=== PATIENT | female | born 1935 | race African-American/Black ===

== ENCOUNTER 2018-05-18 15:42 | Inpatient (IN) ==
[2018-05-18 16:33] LABS: Basophils # 0.1 10*3/uL (0.0-0.2); Basophils % 0.5 % (0.0-0.8); Eosinophils # 0.1 10*3/uL (0.0-0.87); Eosinophils % 1.4 % (0.00-10.9); Hematocrit 44.3 VOL% (35.7-47.0); Hemoglobin 14.1 GM/DL (12.0-16.0); Immature Granulocytes % 0.3 %; Immature Granulocytes Absolute 0.03 #; Lymphocytes # 1.6 10*3/uL (1.4-4.0); Lymphocytes % 16.7 % (21.3-54.2); Mean Corpuscular HGB Conc 31.8 GM/DL (32-36); Mean Corpuscular Hemoglobin 29 PG (27-34); Mean Corpuscular Volume 91.7 FL (87-102); Mean Platelet Volume 11.1 FL (9.6-12.0); Monocytes # 0.9 10*3/uL (0.11-0.8); Monocytes % 8.9 % (1.7-12.7); Neutrophils # 6.9 10*3/uL (1.4-7.4); Neutrophils % 72.2 % (38.7-73.9); Platelet Count 239 T/CUMM (130-400); Red Blood Count 4.83 MC/CUMM (3.8-5.5); Red Cell Distribution Width 15.3 % (9.3-17.3); White Blood Count 9.5 T/CUMM (4-12)
[2018-05-18 16:49] LABS: Albumin 3.4 G/DL (3.4-5.0); Bilirubin,Total 0.6 MG/DL (0.2-1.0); Calcium 9.1 MG/DL (8.5-10.1); Osmolality,Calculated 303.9 MOS/KG (273-304); Potassium 3.3 MMOL/L (3.5-5.1); Total Protein 7.6 G/DL (6.4-8.3)
[2018-05-18 16:59] LABS: Apearance,Urine Slightly Hazy (Clear); Bacteria,Urine Many /HPF (Few); Blood, Urine Negative (Negative); Glucose,Urine (UA) Negative (Negative); Ketones,Urine 80 mg/dL (Negative); Mucus,Urine Occasional /LPF (Occasional); Nitrite,Urine Negative (Negative); Protein,Urine 30 MG/DL; RBC,Urine 1 /HPF (0-4); Squamous Epithelial Cell,Urine Occasional /HPF (0-10); Urine Specific Gravity 1.031 (1.001-1.035); WBC,Urine 5 /HPF (0-6)
[2018-05-18 17:00] LABS: Bilirubin,Urine Small mg/dL (Negative); Urine Color Yellow (Yellow)
[2018-05-18] MEDS ORDERED: SODIUM CHLORIDE 0.65% NASAL SPRAY 45 ML BOTTLE BOTH NARES PRN (19:11)
[2018-05-18] MEDS ORDERED: clonazePAM 0.5 MG TABLET PO PRN (19:11)
[2018-05-18] MEDS ORDERED: ACETAMINOPHEN 325 MG TABLET PO PRN (19:11)
[2018-05-18] MEDS ORDERED: DEXTROSE 5% NACL 0.45% 1,000 ML IV SCH (19:11)
[2018-05-18] MEDS ORDERED: ONDANSETRON 4 MG TABLET PO PRN (19:11)
[2018-05-18] MEDS ORDERED: DEXTROSE 50% 25 GM/50 ML VIAL IV PRN (19:11)
[2018-05-18] MEDS ORDERED: POTASSIUM CHLORIDE INJ 10 MEQ in DEXTROSE 5% NACL 0.22% 1,000 ML IV SCH (19:11)
[2018-05-18] MEDS ORDERED: BISACODYL 5 MG TABLET PO PRN (19:11)
[2018-05-18] MEDS ORDERED: GLUCAGON 1 MG VIAL IM PRN (19:11)
[2018-05-18] MEDS ORDERED: ACETAMINOPHEN 500 MG TABLET PO PRN (19:11)
[2018-05-18] MEDS ORDERED: POLYVINYL ALCOHOL 1.4% OPH SOLN 15 ML BOTTLE BOTH EYES PRN (19:11)
[2018-05-18] MEDS ORDERED: CETIRIZINE 10 MG TABLET PO PRN (19:11)
[2018-05-18] MEDS ORDERED: NUT TX GLUC INTOL LF SOY PO SCH (20:00)
[2018-05-18] MEDS ORDERED: FIBER PO SCH (20:00)
[2018-05-18] MEDS ORDERED: [UNRECOGNIZED DRUG - OTHER] PO SCH (20:00)
[2018-05-18 21:06] LABS: CKMB % 0.6 %; Troponin I 0.026 NG/ML (0.00-0.045)
[2018-05-18] MEDS ORDERED: DEXT 5% NACL 0.2% KCL 20 MEQ 20 MEQ/1,000 ML BAG IV SCH (22:00)
[2018-05-18] MEDS: INSULIN REGULAR 100 UNIT/ML SUBCUT SCH (23:27)
[2018-05-18] MEDS: MEGESTROL 400 MG/10 ML UDCUP PO SCH (23:28)
[2018-05-18] MEDS: OMEGA 3 ACID ETHYL ESTERS 1 GM CAPSULE PO SCH (23:28)
[2018-05-18] MEDS: ATORVASTATIN 20 MG TABLET PO SCH (23:28)
[2018-05-18] MEDS: ENTACAPONE 200 MG TABLET PO SCH (23:29)
[2018-05-18] MEDS: DONEPEZIL 10 MG TABLET PO SCH (23:29)
[2018-05-18] MEDS: risperiDONE 0.5 MG TABLET PO SCH (23:30)
[2018-05-18] MEDS: MIRTAZAPINE 15 MG TABLET PO SCH (23:30)
[2018-05-18] MEDS: PANTOPRAZOLE 40 MG TABLET PO SCH (23:30)
[2018-05-18] MEDS: rOPINIRole 1 MG TABLET PO SCH (23:30)
[2018-05-18] MEDS: CARBIDOPA/LEVODOPA 25-250 MG TABLET PO SCH (23:31)
[2018-05-19] MEDS: ENOXAPARIN 40 MG/0.4 ML SYRINGE SUBCUT SCH ×2 (00:12→21:59)
[2018-05-19] MEDS: POTASSIUM CHLORIDE RIDER 10 MEQ in PREMIX 1 EACH IV SCH ×2 (00:13→04:44)
[2018-05-19] MEDS: cefTRIAXone 1,000 MG in SYRINGE 1 EACH IV SCH ×2 (00:13→21:59)
[2018-05-19 06:12] LABS: Basophils % 0.4 % (0.0-0.8); Eosinophils # 0.2 10*3/uL (0.0-0.87); Eosinophils % 2.4 % (0.00-10.9); Hematocrit 41.4 VOL% (35.7-47.0); Hemoglobin 13.2 GM/DL (12.0-16.0); Immature Granulocytes % 0.4 %; Immature Granulocytes Absolute 0.04 #; Lymphocytes # 1.5 10*3/uL (1.4-4.0); Lymphocytes % 16.5 % (21.3-54.2); Mean Corpuscular HGB Conc 31.9 GM/DL (32-36); Mean Corpuscular Hemoglobin 29 PG (27-34); Mean Corpuscular Volume 91.6 FL (87-102); Mean Platelet Volume 10.7 FL (9.6-12.0); Monocytes # 0.9 10*3/uL (0.11-0.8); Monocytes % 10.1 % (1.7-12.7); Neutrophils # 6.3 10*3/uL (1.4-7.4); Neutrophils % 70.2 % (38.7-73.9); Platelet Count 218 T/CUMM (130-400); Red Blood Count 4.52 MC/CUMM (3.8-5.5); Red Cell Distribution Width 15.5 % (9.3-17.3)
[2018-05-19 06:21] LABS: Albumin 3.1 G/DL (3.4-5.0); Bilirubin,Total 1.1 MG/DL (0.2-1.0); Calcium 8.9 MG/DL (8.5-10.1); Osmolality,Calculated 305.7 MOS/KG (273-304); Potassium 3.2 MMOL/L (3.5-5.1); Risk Ratio 4.85; Total Protein 6.9 G/DL (6.4-8.3)
[2018-05-19] MEDS ORDERED: PROTEIN HYDROLYS PO SCH (08:00)
[2018-05-19] MEDS ORDERED: AMINO ACIDS PO SCH (08:00)
[2018-05-19] MEDS: INSULIN REGULAR 100 UNIT/ML SUBCUT SCH ×4 (08:00→22:41)
[2018-05-19] MEDS ORDERED: [UNRECOGNIZED DRUG - OTHER] PO SCH (08:00)
[2018-05-19] MEDS ORDERED: SODIUM CHLORIDE IV SCH (09:00)
[2018-05-19] MEDS ORDERED: [UNRECOGNIZED DRUG - OTHER] PO SCH (09:00)
[2018-05-19] MEDS ORDERED: POTASSIUM CHLORIDE IV SCH (09:00)
[2018-05-19] MEDS ORDERED: [UNRECOGNIZED DRUG - OTHER] IV SCH (09:00)
[2018-05-19] MEDS: ENTACAPONE 200 MG TABLET PO SCH ×4 (10:05→21:57)
[2018-05-19] MEDS: LACTULOSE 20 GM/30 ML UDCUP PO SCH (10:05)
[2018-05-19] MEDS: OMEGA 3 ACID ETHYL ESTERS 1 GM CAPSULE PO SCH ×2 (10:06→21:58)
[2018-05-19] MEDS: MEGESTROL 400 MG/10 ML UDCUP PO SCH ×2 (10:06→21:58)
[2018-05-19] MEDS: POLYETHYLENE GLYCOL POWDER 17 GM PACK PO SCH (10:06)
[2018-05-19] MEDS: rOPINIRole 1 MG TABLET PO SCH ×3 (10:06→22:41)
[2018-05-19] MEDS: CARBIDOPA/LEVODOPA 25-250 MG TABLET PO SCH ×4 (10:07→21:59)
[2018-05-19] MEDS: POTASSIUM CHLORIDE INJ 30 MEQ in DEXTROSE 5% 1,000 ML IV SCH (13:30)
[2018-05-19 18:46] LABS: Calcium 8.4 MG/DL (8.5-10.1); Osmolality,Calculated 300.1 MOS/KG (273-304); Potassium 3.1 MMOL/L (3.5-5.1)
[2018-05-19] MEDS: DONEPEZIL 10 MG TABLET PO SCH (21:54)
[2018-05-19] MEDS: MIRTAZAPINE 15 MG TABLET PO SCH (21:58)
[2018-05-19] MEDS: PANTOPRAZOLE 40 MG TABLET PO SCH (21:58)
[2018-05-19] MEDS: ATORVASTATIN 20 MG TABLET PO SCH (21:58)
[2018-05-19] MEDS: risperiDONE 0.5 MG TABLET PO SCH (21:59)
[2018-05-20] MEDS: POTASSIUM CHLORIDE INJ 30 MEQ in DEXTROSE 5% 1,000 ML IV SCH (03:15)
[2018-05-20] MEDS: INSULIN REGULAR 100 UNIT/ML SUBCUT SCH ×4 (07:30→21:11)
[2018-05-20] MEDS: MEGESTROL 400 MG/10 ML UDCUP PO SCH ×2 (09:00→21:13)
[2018-05-20] MEDS: OMEGA 3 ACID ETHYL ESTERS 1 GM CAPSULE PO SCH ×2 (09:00→21:13)
[2018-05-20] MEDS: rOPINIRole 1 MG TABLET PO SCH ×3 (09:00→21:15)
[2018-05-20] MEDS: POLYETHYLENE GLYCOL POWDER 17 GM PACK PO SCH (09:00)
[2018-05-20] MEDS: CARBIDOPA/LEVODOPA 25-250 MG TABLET PO SCH ×4 (09:00→21:15)
[2018-05-20] MEDS: LACTULOSE 20 GM/30 ML UDCUP PO SCH (09:00)
[2018-05-20] MEDS: ENTACAPONE 200 MG TABLET PO SCH ×4 (10:00→21:11)
[2018-05-20] MEDS: POTASSIUM CHLORIDE INJ 40 MEQ in DEXTROSE 5% 1,000 ML IV SCH (18:25)
[2018-05-20] MEDS: DONEPEZIL 10 MG TABLET PO SCH (21:11)
[2018-05-20] MEDS: ATORVASTATIN 20 MG TABLET PO SCH (21:12)
[2018-05-20] MEDS: PANTOPRAZOLE 40 MG TABLET PO SCH (21:13)
[2018-05-20] MEDS: ENOXAPARIN 40 MG/0.4 ML SYRINGE SUBCUT SCH (21:13)
[2018-05-20] MEDS: MIRTAZAPINE 15 MG TABLET PO SCH (21:14)
[2018-05-20] MEDS: risperiDONE 0.5 MG TABLET PO SCH (21:15)
[2018-05-20] MEDS: cefTRIAXone 1,000 MG in SYRINGE 1 EACH IV SCH (21:20)
[2018-05-21] MEDS ORDERED: MORPHINE 4 MG/1 ML VIAL IV PRN (00:45)
[2018-05-21] MEDS: ONDANSETRON 4 MG/2 ML VIAL IV PRN ×2 (01:09→23:43)
[2018-05-21 05:50] LABS: Basophils % 0.5 % (0.0-0.8); Eosinophils # 0.3 10*3/uL (0.0-0.87); Eosinophils % 4.3 % (0.00-10.9); Immature Granulocytes % 0.5 %; Immature Granulocytes Absolute 0.03 #; Lymphocytes # 1.4 10*3/uL (1.4-4.0); Lymphocytes % 24.3 % (21.3-54.2); Mean Corpuscular HGB Conc 32.4 GM/DL (32-36); Mean Corpuscular Hemoglobin 29 PG (27-34); Mean Corpuscular Volume 89.5 FL (87-102); Mean Platelet Volume 11.2 FL (9.6-12.0); Monocytes # 0.7 10*3/uL (0.11-0.8); Monocytes % 12.7 % (1.7-12.7); Neutrophils # 3.3 10*3/uL (1.4-7.4); Neutrophils % 57.7 % (38.7-73.9); Platelet Count 185 T/CUMM (130-400); Red Cell Distribution Width 15.1 % (9.3-17.3)
[2018-05-21 06:00] LABS: White Blood Count 5.8 T/CUMM (4-12)
[2018-05-21 06:06] LABS: Calcium 8.3 MG/DL (8.5-10.1); Osmolality,Calculated 283.1 MOS/KG (273-304); Potassium 3.5 MMOL/L (3.5-5.1)
[2018-05-21] MEDS: INSULIN REGULAR 100 UNIT/ML SUBCUT SCH ×4 (07:30→21:55)
[2018-05-21] MEDS: POTASSIUM CHLORIDE INJ 40 MEQ in DEXTROSE 5% 1,000 ML IV SCH (07:56)
[2018-05-21] MEDS: MEGESTROL 400 MG/10 ML UDCUP PO SCH ×2 (09:00→20:52)
[2018-05-21] MEDS: OMEGA 3 ACID ETHYL ESTERS 1 GM CAPSULE PO SCH ×2 (09:00→20:51)
[2018-05-21] MEDS: ENTACAPONE 200 MG TABLET PO SCH ×4 (09:00→20:50)
[2018-05-21] MEDS: POLYETHYLENE GLYCOL POWDER 17 GM PACK PO SCH (09:00)
[2018-05-21] MEDS: CARBIDOPA/LEVODOPA 25-250 MG TABLET PO SCH ×4 (09:00→20:52)
[2018-05-21] MEDS: rOPINIRole 1 MG TABLET PO SCH ×3 (09:00→20:52)
[2018-05-21] MEDS: LACTULOSE 20 GM/30 ML UDCUP PO SCH (09:00)
[2018-05-21] MEDS ORDERED: MAGNESIUM SULF RIDER 4 GM in PREMIX 1 EACH IV PRN (13:56)
[2018-05-21] MEDS: MAGNESIUM SULF RIDER 2 GM in PREMIX 1 EACH IV PRN (19:58)
[2018-05-21] MEDS: cefTRIAXone 1,000 MG in SYRINGE 1 EACH IV SCH (20:49)
[2018-05-21] MEDS: DONEPEZIL 10 MG TABLET PO SCH (20:50)
[2018-05-21] MEDS: ATORVASTATIN 20 MG TABLET PO SCH (20:51)
[2018-05-21] MEDS: MIRTAZAPINE 15 MG TABLET PO SCH (20:52)
[2018-05-21] MEDS: risperiDONE 0.5 MG TABLET PO SCH (20:52)
[2018-05-22] MEDS: POTASSIUM CHLORIDE INJ 40 MEQ in DEXTROSE 5% 1,000 ML IV SCH ×3 (00:57→17:24)
[2018-05-22 05:26] LABS: Basophils % 0.6 % (0.0-0.8); Eosinophils # 0.2 10*3/uL (0.0-0.87); Eosinophils % 3.6 % (0.00-10.9); Hematocrit 35.8 VOL% (35.7-47.0); Hemoglobin 11.6 GM/DL (12.0-16.0); Immature Granulocytes % 0.6 %; Immature Granulocytes Absolute 0.04 #; Lymphocytes # 1.6 10*3/uL (1.4-4.0); Lymphocytes % 24.4 % (21.3-54.2); Mean Corpuscular HGB Conc 32.4 GM/DL (32-36); Mean Corpuscular Hemoglobin 29 PG (27-34); Mean Corpuscular Volume 89.1 FL (87-102); Mean Platelet Volume 11.5 FL (9.6-12.0); Monocytes # 0.8 10*3/uL (0.11-0.8); Monocytes % 12.7 % (1.7-12.7); Neutrophils # 3.7 10*3/uL (1.4-7.4); Neutrophils % 58.1 % (38.7-73.9); Platelet Count 183 T/CUMM (130-400); Red Blood Count 4.02 MC/CUMM (3.8-5.5); Red Cell Distribution Width 14.7 % (9.3-17.3); White Blood Count 6.4 T/CUMM (4-12)
[2018-05-22 05:45] LABS: Calcium 8.4 MG/DL (8.5-10.1); Osmolality,Calculated 271.8 MOS/KG (273-304)
[2018-05-22] MEDS ORDERED: FAMOTIDINE 20 MG/2 ML VIAL IV ONE (07:09)
[2018-05-22] MEDS: INSULIN REGULAR 100 UNIT/ML SUBCUT SCH ×4 (08:30→21:41)
[2018-05-22] MEDS ORDERED: PANTOPRAZOLE 40 MG VIAL IV SCH (09:00)
[2018-05-22] MEDS: OMEGA 3 ACID ETHYL ESTERS 1 GM CAPSULE PO SCH ×3 (10:04→21:42)
[2018-05-22] MEDS: MEGESTROL 400 MG/10 ML UDCUP PO SCH ×2 (10:04→21:42)
[2018-05-22] MEDS: LACTULOSE 20 GM/30 ML UDCUP PO SCH (10:04)
[2018-05-22] MEDS: ENTACAPONE 200 MG TABLET PO SCH ×4 (10:04→21:41)
[2018-05-22] MEDS: POLYETHYLENE GLYCOL POWDER 17 GM PACK PO SCH (10:04)
[2018-05-22] MEDS: CARBIDOPA/LEVODOPA 25-250 MG TABLET PO SCH ×4 (10:04→21:43)
[2018-05-22] MEDS: rOPINIRole 1 MG TABLET PO SCH ×3 (10:05→21:42)
[2018-05-22] MEDS ORDERED: MINERAL OIL ENEMA 133 ML BOTTLE RECTAL ONE (15:59)
[2018-05-22] MEDS ORDERED: LIDOCAINE 100 MG/5 ML SYRINGE ONE (18:48)
[2018-05-22] MEDS ORDERED: PROPOFOL 200 MG/20 ML VIAL IV ONE (18:48)
[2018-05-22] MEDS: DONEPEZIL 10 MG TABLET PO SCH (21:41)
[2018-05-22] MEDS: ATORVASTATIN 20 MG TABLET PO SCH (21:41)
[2018-05-22] MEDS: DOCUSATE SODIUM 100 MG/10 ML UDCUP PO SCH (21:41)
[2018-05-22] MEDS: MIRTAZAPINE 15 MG TABLET PO SCH (21:42)
[2018-05-22] MEDS: risperiDONE 0.5 MG TABLET PO SCH (21:43)
[2018-05-22] MEDS: PANTOPRAZOLE 40 MG VIAL IV SCH (22:38)
[2018-05-23] MEDS: POTASSIUM CHLORIDE INJ 40 MEQ in DEXTROSE 5% 1,000 ML IV SCH ×3 (05:09→23:13)
[2018-05-23 06:25] LABS: Osmolality,Calculated 270.8 MOS/KG (273-304); Potassium 3.9 MMOL/L (3.5-5.1)
[2018-05-23] MEDS ORDERED: PROMETHAZINE INJ 25 MG in SODIUM CHLORIDE 0.9% 50 ML IV PRN (09:01)
[2018-05-23] MEDS: INSULIN REGULAR 100 UNIT/ML SUBCUT SCH ×4 (10:53→23:07)
[2018-05-23] MEDS: OMEGA 3 ACID ETHYL ESTERS 1 GM CAPSULE PO SCH ×2 (10:55→23:07)
[2018-05-23] MEDS: ENTACAPONE 200 MG TABLET PO SCH ×4 (10:55→23:07)
[2018-05-23] MEDS: DOCUSATE SODIUM 100 MG/10 ML UDCUP PO SCH ×2 (10:55→23:06)
[2018-05-23] MEDS: POLYETHYLENE GLYCOL POWDER 17 GM PACK PO SCH (10:56)
[2018-05-23] MEDS: rOPINIRole 1 MG TABLET PO SCH ×3 (10:56→23:08)
[2018-05-23] MEDS: CARBIDOPA/LEVODOPA 25-250 MG TABLET PO SCH ×4 (10:56→23:08)
[2018-05-23] MEDS: MEGESTROL 400 MG/10 ML UDCUP PO SCH ×2 (10:56→23:07)
[2018-05-23] MEDS: PANTOPRAZOLE 40 MG VIAL IV SCH ×2 (14:55→23:20)
[2018-05-23] MEDS: LACTULOSE 20 GM/30 ML UDCUP PO SCH (15:04)
[2018-05-23] MEDS ORDERED: BISACODYL 10 MG SUPP RECTAL ONE (15:56)
[2018-05-23] MEDS: DONEPEZIL 10 MG TABLET PO SCH (23:06)
[2018-05-23] MEDS: ATORVASTATIN 20 MG TABLET PO SCH (23:07)
[2018-05-23] MEDS: MIRTAZAPINE 15 MG TABLET PO SCH (23:08)
[2018-05-23] MEDS: risperiDONE 0.5 MG TABLET PO SCH (23:08)
[2018-05-24 07:00] LABS: Basophils % 0.4 % (0.0-0.8); Eosinophils # 0.2 10*3/uL (0.0-0.87); Eosinophils % 2.9 % (0.00-10.9); Hematocrit 35.1 VOL% (35.7-47.0); Hemoglobin 11.6 GM/DL (12.0-16.0); Immature Granulocytes % 0.4 %; Immature Granulocytes Absolute 0.03 #; Lymphocytes # 1.7 10*3/uL (1.4-4.0); Lymphocytes % 21.7 % (21.3-54.2); Mean Corpuscular Hemoglobin 29 PG (27-34); Mean Platelet Volume 11.1 FL (9.6-12.0); Monocytes % 11.9 % (1.7-12.7); Neutrophils % 62.7 % (38.7-73.9); Platelet Count 213 T/CUMM (130-400); Red Blood Count 3.99 MC/CUMM (3.8-5.5); Red Cell Distribution Width 14.9 % (9.3-17.3)
[2018-05-24 07:51] LABS: Calcium 7.9 MG/DL (8.5-10.1); Osmolality,Calculated 267.1 MOS/KG (273-304); Potassium 4.1 MMOL/L (3.5-5.1)
[2018-05-24] MEDS: INSULIN REGULAR 100 UNIT/ML SUBCUT SCH ×4 (09:42→21:33)
[2018-05-24] MEDS: POTASSIUM CHLORIDE INJ 40 MEQ in DEXTROSE 5% 1,000 ML IV SCH (10:22)
[2018-05-24] MEDS: PANTOPRAZOLE 40 MG VIAL IV SCH ×2 (11:00→20:41)
[2018-05-24] MEDS: CARBIDOPA/LEVODOPA 25-250 MG TABLET PO SCH ×4 (11:01→20:40)
[2018-05-24] MEDS: POLYETHYLENE GLYCOL POWDER 17 GM PACK PEG SCH ×2 (11:01→21:33)
[2018-05-24] MEDS: POLYETHYLENE GLYCOL POWDER 17 GM PACK PO SCH (11:02)
[2018-05-24] MEDS: rOPINIRole 1 MG TABLET PO SCH ×3 (11:02→20:40)
[2018-05-24] MEDS: OMEGA 3 ACID ETHYL ESTERS 1 GM CAPSULE PO SCH ×2 (11:02→20:40)
[2018-05-24] MEDS: ENTACAPONE 200 MG TABLET PO SCH ×4 (11:02→20:40)
[2018-05-24] MEDS: METOCLOPRAMIDE 10 MG/10 ML UDCUP PEG SCH ×3 (13:01→20:40)
[2018-05-24] MEDS: DONEPEZIL 10 MG TABLET PO SCH (20:40)
[2018-05-24] MEDS: ATORVASTATIN 20 MG TABLET PO SCH (20:40)
[2018-05-24] MEDS: risperiDONE 0.5 MG TABLET PO SCH (20:40)
[2018-05-25] MEDS: ONDANSETRON 4 MG/2 ML VIAL IV PRN ×3 (01:30→21:26)
[2018-05-25] MEDS: POTASSIUM CHLORIDE INJ 40 MEQ in DEXTROSE 5% 1,000 ML IV SCH ×2 (01:40→15:50)
[2018-05-25] MEDS: INSULIN REGULAR 100 UNIT/ML SUBCUT SCH ×4 (08:23→21:28)
[2018-05-25] MEDS: AZITHROMYCIN INJ 250 MG in SODIUM CHLORIDE 0.9% 250 ML IV SCH (09:49)
[2018-05-25] MEDS: PANTOPRAZOLE 40 MG VIAL IV SCH ×2 (09:50→21:27)
[2018-05-25] MEDS: CARBIDOPA/LEVODOPA 25-250 MG TABLET PO SCH ×4 (09:53→21:27)
[2018-05-25] MEDS: ENTACAPONE 200 MG TABLET PO SCH ×4 (09:53→21:26)
[2018-05-25] MEDS: POLYETHYLENE GLYCOL POWDER 17 GM PACK PEG SCH ×2 (09:53→21:27)
[2018-05-25] MEDS: OMEGA 3 ACID ETHYL ESTERS 1 GM CAPSULE PO SCH ×2 (09:53→21:27)
[2018-05-25] MEDS: rOPINIRole 1 MG TABLET PO SCH ×3 (09:58→21:26)
[2018-05-25] MEDS: METOCLOPRAMIDE 10 MG/10 ML UDCUP PEG SCH (09:58)
[2018-05-25] MEDS: METOCLOPRAMIDE 10 MG/2 ML VIAL IV SCH ×2 (15:51→17:17)
[2018-05-25] MEDS: risperiDONE 0.5 MG TABLET PO SCH (21:26)
[2018-05-25] MEDS: DONEPEZIL 10 MG TABLET PO SCH (21:27)
[2018-05-25] MEDS: ATORVASTATIN 20 MG TABLET PO SCH (21:27)
[2018-05-26] MEDS: METOCLOPRAMIDE 10 MG/2 ML VIAL IV SCH ×4 (00:50→17:14)
[2018-05-26 06:09] LABS: Basophils # 0.1 10*3/uL (0.0-0.2); Basophils % 0.4 % (0.0-0.8); Eosinophils # 0.2 10*3/uL (0.0-0.87); Eosinophils % 1.3 % (0.00-10.9); Hematocrit 36.2 VOL% (35.7-47.0); Immature Granulocytes % 0.5 %; Immature Granulocytes Absolute 0.07 #; Lymphocytes # 1.7 10*3/uL (1.4-4.0); Lymphocytes % 12.4 % (21.3-54.2); Mean Corpuscular HGB Conc 33.1 GM/DL (32-36); Mean Corpuscular Hemoglobin 29 PG (27-34); Monocytes # 1.6 10*3/uL (0.11-0.8); Monocytes % 11.5 % (1.7-12.7); NRBC # 0.03 10*3/uL; Neutrophils # 9.9 10*3/uL (1.4-7.4); Neutrophils % 73.9 % (38.7-73.9); Platelet Count 264 T/CUMM (130-400); Red Blood Count 4.16 MC/CUMM (3.8-5.5); Red Cell Distribution Width 14.9 % (9.3-17.3); White Blood Count 13.4 T/CUMM (4-12)
[2018-05-26 06:29] LABS: Calcium 8.6 MG/DL (8.5-10.1); Osmolality,Calculated 264.4 MOS/KG (273-304); Potassium 3.9 MMOL/L (3.5-5.1)
[2018-05-26 06:34] LABS: Prealbumin 8.9 MG/DL (20-40)
[2018-05-26] MEDS: INSULIN REGULAR 100 UNIT/ML SUBCUT SCH ×4 (07:30→21:57)
[2018-05-26] MEDS ORDERED: MAGNESIUM HYDROXIDE SUSP 30 ML UDCUP PO ONE (09:40)
[2018-05-26] MEDS: rOPINIRole 1 MG TABLET PO SCH ×3 (09:49→21:56)
[2018-05-26] MEDS: ENTACAPONE 200 MG TABLET PO SCH ×4 (09:49→21:56)
[2018-05-26] MEDS: OMEGA 3 ACID ETHYL ESTERS 1 GM CAPSULE PO SCH ×2 (09:49→21:56)
[2018-05-26] MEDS: PANTOPRAZOLE 40 MG VIAL IV SCH ×2 (09:49→21:56)
[2018-05-26] MEDS: POLYETHYLENE GLYCOL POWDER 17 GM PACK PEG SCH ×2 (09:49→21:56)
[2018-05-26] MEDS: CARBIDOPA/LEVODOPA 25-250 MG TABLET PO SCH ×4 (09:49→21:56)
[2018-05-26] MEDS: ONDANSETRON 4 MG/2 ML VIAL IV PRN ×2 (09:51→13:46)
[2018-05-26] MEDS: AZITHROMYCIN INJ 250 MG in SODIUM CHLORIDE 0.9% 250 ML IV SCH (09:55)
[2018-05-26] MEDS: POTASSIUM CHLORIDE INJ 40 MEQ in DEXTROSE 5% 1,000 ML IV SCH (16:52)
[2018-05-26] MEDS: DONEPEZIL 10 MG TABLET PO SCH (21:56)
[2018-05-26] MEDS: ATORVASTATIN 20 MG TABLET PO SCH (21:56)
[2018-05-26] MEDS: risperiDONE 0.5 MG TABLET PO SCH (21:56)
[2018-05-26] MEDS: MAGNESIUM SULF RIDER 2 GM in PREMIX 1 EACH IV PRN (21:57)
[2018-05-27] MEDS: METOCLOPRAMIDE 10 MG/2 ML VIAL IV SCH ×4 (00:30→18:48)
[2018-05-27] MEDS: ONDANSETRON 4 MG/2 ML VIAL IV PRN (00:34)
[2018-05-27] MEDS: POTASSIUM CHLORIDE INJ 40 MEQ in DEXTROSE 5% 1,000 ML IV SCH ×2 (04:17→18:39)
[2018-05-27] MEDS ORDERED: MAGNESIUM HYDROXIDE SUSP 30 ML UDCUP PO ONE (07:21)
[2018-05-27 08:40] LABS: Basophils % 0.3 % (0.0-0.8); Eosinophils # 0.2 10*3/uL (0.0-0.87); Eosinophils % 1.4 % (0.00-10.9); Hematocrit 35.8 VOL% (35.7-47.0); Hemoglobin 11.6 GM/DL (12.0-16.0); Immature Granulocytes % 0.7 %; Lymphocytes % 13.6 % (21.3-54.2); Mean Corpuscular HGB Conc 32.4 GM/DL (32-36); Mean Corpuscular Hemoglobin 29 PG (27-34); Mean Platelet Volume 9.7 FL (9.6-12.0); Monocytes # 1.3 10*3/uL (0.11-0.8); Monocytes % 8.7 % (1.7-12.7); Neutrophils % 75.3 % (38.7-73.9); Platelet Count 231 T/CUMM (130-400); Red Blood Count 4.07 MC/CUMM (3.8-5.5); White Blood Count 14.7 T/CUMM (4-12)
[2018-05-27 09:08] LABS: Albumin 2.3 G/DL (3.4-5.0); Bilirubin,Total 0.6 MG/DL (0.2-1.0); Calcium 8.4 MG/DL (8.5-10.1); Osmolality,Calculated 263.5 MOS/KG (273-304); Potassium 4.4 MMOL/L (3.5-5.1)
[2018-05-27] MEDS: ENTACAPONE 200 MG TABLET PO SCH ×4 (09:27→22:54)
[2018-05-27] MEDS: OMEGA 3 ACID ETHYL ESTERS 1 GM CAPSULE PO SCH ×2 (09:27→22:54)
[2018-05-27] MEDS: POLYETHYLENE GLYCOL POWDER 17 GM PACK PEG SCH ×2 (09:27→22:54)
[2018-05-27] MEDS: PANTOPRAZOLE 40 MG VIAL IV SCH ×2 (09:28→22:54)
[2018-05-27] MEDS: INSULIN REGULAR 100 UNIT/ML SUBCUT SCH ×4 (09:28→23:54)
[2018-05-27] MEDS: CARBIDOPA/LEVODOPA 25-250 MG TABLET PO SCH ×4 (09:28→22:53)
[2018-05-27] MEDS: AZITHROMYCIN INJ 250 MG in SODIUM CHLORIDE 0.9% 250 ML IV SCH (09:28)
[2018-05-27] MEDS: rOPINIRole 1 MG TABLET PO SCH ×3 (09:28→22:53)
[2018-05-27] MEDS ORDERED: SODIUM CHLORIDE 0.9% 500 ML IV ONE (19:42)
[2018-05-27] MEDS: DONEPEZIL 10 MG TABLET PO SCH (22:53)
[2018-05-27] MEDS: risperiDONE 0.5 MG TABLET PO SCH (22:54)
[2018-05-27] MEDS: ATORVASTATIN 20 MG TABLET PO SCH (22:54)
[2018-05-28] MEDS: METOCLOPRAMIDE 10 MG/2 ML VIAL IV SCH ×5 (01:51→23:01)
[2018-05-28] MEDS ORDERED: SODIUM CHLORIDE 0.9% 500 ML IV ONE (02:22)
[2018-05-28 05:40] LABS: Basophils % 0.1 % (0.0-0.8); Eosinophils # 0.2 10*3/uL (0.0-0.87); Eosinophils % 2.6 % (0.00-10.9); Hematocrit 35.1 VOL% (35.7-47.0); Hemoglobin 11.1 GM/DL (12.0-16.0); Immature Granulocytes % 0.6 %; Immature Granulocytes Absolute 0.05 #; Lymphocytes % 12.1 % (21.3-54.2); Mean Corpuscular HGB Conc 31.6 GM/DL (32-36); Mean Corpuscular Hemoglobin 28 PG (27-34); Mean Corpuscular Volume 89.8 FL (87-102); Mean Platelet Volume 9.8 FL (9.6-12.0); Monocytes # 0.8 10*3/uL (0.11-0.8); Monocytes % 9.7 % (1.7-12.7); Neutrophils # 5.9 10*3/uL (1.4-7.4); Neutrophils % 74.9 % (38.7-73.9); Platelet Count 215 T/CUMM (130-400); Red Blood Count 3.91 MC/CUMM (3.8-5.5); White Blood Count 7.9 T/CUMM (4-12)
[2018-05-28 06:24] LABS: Albumin 2.2 G/DL (3.4-5.0); Bilirubin,Total 0.8 MG/DL (0.2-1.0); Calcium 7.9 MG/DL (8.5-10.1); Osmolality,Calculated 261.7 MOS/KG (273-304); Potassium 4.2 MMOL/L (3.5-5.1); Total Protein 5.7 G/DL (6.4-8.3)
[2018-05-28] MEDS: INSULIN REGULAR 100 UNIT/ML SUBCUT SCH ×4 (07:36→22:55)
[2018-05-28] MEDS: SODIUM CHLORIDE 0.9% 1,000 ML IV SCH ×2 (08:14→21:30)
[2018-05-28] MEDS: OMEGA 3 ACID ETHYL ESTERS 1 GM CAPSULE PO SCH ×2 (08:15→22:54)
[2018-05-28] MEDS: rOPINIRole 1 MG TABLET PO SCH ×3 (08:15→22:54)
[2018-05-28] MEDS: ENTACAPONE 200 MG TABLET PO SCH ×4 (08:15→22:54)
[2018-05-28] MEDS: PANTOPRAZOLE 40 MG VIAL IV SCH ×2 (08:15→22:52)
[2018-05-28] MEDS: CARBIDOPA/LEVODOPA 25-250 MG TABLET PO SCH ×4 (08:15→22:52)
[2018-05-28] MEDS: POLYETHYLENE GLYCOL POWDER 17 GM PACK PEG SCH ×2 (08:15→22:52)
[2018-05-28] MEDS: AZITHROMYCIN INJ 250 MG in SODIUM CHLORIDE 0.9% 250 ML IV SCH (09:48)
[2018-05-28] MEDS: DONEPEZIL 10 MG TABLET PO SCH (22:52)
[2018-05-28] MEDS: ATORVASTATIN 20 MG TABLET PO SCH (22:54)
[2018-05-28] MEDS: risperiDONE 0.5 MG TABLET PO SCH (22:54)
[2018-05-29] MEDS ORDERED: SODIUM CHLORIDE 0.9% 500 ML IV ONE ×2 (00:51→12:24)
[2018-05-29 05:56] LABS: Basophils % 0.5 % (0.0-0.8); Eosinophils # 0.2 10*3/uL (0.0-0.87); Eosinophils % 4.1 % (0.00-10.9); Hematocrit 32.9 VOL% (35.7-47.0); Hemoglobin 10.4 GM/DL (12.0-16.0); Immature Granulocytes % 0.7 %; Immature Granulocytes Absolute 0.04 #; Lymphocytes # 1.8 10*3/uL (1.4-4.0); Lymphocytes % 30.1 % (21.3-54.2); Mean Corpuscular HGB Conc 31.6 GM/DL (32-36); Mean Corpuscular Hemoglobin 29 PG (27-34); Mean Corpuscular Volume 90.4 FL (87-102); Mean Platelet Volume 9.4 FL (9.6-12.0); Monocytes # 0.7 10*3/uL (0.11-0.8); Monocytes % 12.4 % (1.7-12.7); Neutrophils % 52.2 % (38.7-73.9); Platelet Count 235 T/CUMM (130-400); Red Blood Count 3.64 MC/CUMM (3.8-5.5); Red Cell Distribution Width 15.3 % (9.3-17.3); White Blood Count 5.8 T/CUMM (4-12)
[2018-05-29 06:17] LABS: Bilirubin,Total 0.7 MG/DL (0.2-1.0); Calcium 7.8 MG/DL (8.5-10.1); Osmolality,Calculated 272.7 MOS/KG (273-304); Potassium 4.6 MMOL/L (3.5-5.1); Total Protein 5.2 G/DL (6.4-8.3)
[2018-05-29] MEDS: METOCLOPRAMIDE 10 MG/2 ML VIAL IV SCH ×3 (07:16→17:20)
[2018-05-29] MEDS: INSULIN REGULAR 100 UNIT/ML SUBCUT SCH ×4 (09:34→22:46)
[2018-05-29] MEDS: AZITHROMYCIN INJ 250 MG in SODIUM CHLORIDE 0.9% 250 ML IV SCH (10:13)
[2018-05-29] MEDS: rOPINIRole 1 MG TABLET PO SCH ×4 (10:14→20:44)
[2018-05-29] MEDS: OMEGA 3 ACID ETHYL ESTERS 1 GM CAPSULE PO SCH ×2 (10:14→20:44)
[2018-05-29] MEDS: CARBIDOPA/LEVODOPA 25-250 MG TABLET PO SCH ×4 (10:14→20:44)
[2018-05-29] MEDS: ENTACAPONE 200 MG TABLET PO SCH ×4 (10:14→20:44)
[2018-05-29] MEDS: POLYETHYLENE GLYCOL POWDER 17 GM PACK PEG SCH ×2 (10:14→20:44)
[2018-05-29] MEDS: SODIUM CHLORIDE 0.9% 1,000 ML IV SCH (11:16)
[2018-05-29] MEDS: PANTOPRAZOLE 40 MG VIAL IV SCH (13:56)
[2018-05-29] MEDS: DONEPEZIL 10 MG TABLET PO SCH (20:44)
[2018-05-29] MEDS: risperiDONE 0.5 MG TABLET PO SCH (20:44)
[2018-05-29] MEDS: ATORVASTATIN 20 MG TABLET PO SCH (20:44)
[2018-05-30] MEDS: LANSOPRAZOLE ODT 30 MG TABLET PEG SCH ×2 (02:17→11:00)
[2018-05-30] MEDS: SODIUM CHLORIDE 0.9% 1,000 ML IV SCH (02:18)
[2018-05-30] MEDS: METOCLOPRAMIDE 10 MG/2 ML VIAL IV SCH ×2 (02:19→06:14)
[2018-05-30 06:08] LABS: Basophils % 0.7 % (0.0-0.8); Eosinophils # 0.3 10*3/uL (0.0-0.87); Eosinophils % 5.4 % (0.00-10.9); Hematocrit 33.5 VOL% (35.7-47.0); Hemoglobin 10.7 GM/DL (12.0-16.0); Immature Granulocytes % 1.1 %; Immature Granulocytes Absolute 0.07 #; Lymphocytes # 1.6 10*3/uL (1.4-4.0); Lymphocytes % 25.6 % (21.3-54.2); Mean Corpuscular HGB Conc 31.9 GM/DL (32-36); Mean Corpuscular Hemoglobin 29 PG (27-34); Mean Corpuscular Volume 90.3 FL (87-102); Mean Platelet Volume 9.3 FL (9.6-12.0); Monocytes # 1.1 10*3/uL (0.11-0.8); Monocytes % 17.6 % (1.7-12.7); Neutrophils % 49.6 % (38.7-73.9); Platelet Count 248 T/CUMM (130-400); Red Blood Count 3.71 MC/CUMM (3.8-5.5); Red Cell Distribution Width 15.2 % (9.3-17.3); White Blood Count 6.1 T/CUMM (4-12)
[2018-05-30 06:26] LABS: Alanine Aminotransferase 31 U/L (13-56); Albumin 2.1 G/DL (3.4-5.0); Alkaline Phosphatase 117 U/L (45-117); Aspartate Amino Transferase 31 U/L (0-37); Bilirubin,Total < 0.39 MG/DL (0.2-1.0); Blood Urea Nitrogen 5 MG/DL (7-18); Calcium 8.1 MG/DL (8.5-10.1); Glucose 114 MG/DL (74-106); Potassium 4.3 MMOL/L (3.5-5.1); Sodium 136 MMOL/L (136-145); Total Protein 5.6 G/DL (6.4-8.3)
[2018-05-30 06:41] LABS: Eosinophils 4 % (0-10); Lymphocytes 26 % (20-55); Platelet Estimate Adequate; Segmented Neutrophils 57 % (50-85); Total Cells Counted 100
[2018-05-30 06:42] LABS: Hypochromasia 1+
[2018-05-30] MEDS: INSULIN REGULAR 100 UNIT/ML SUBCUT SCH ×2 (07:56→12:34)
[2018-05-30] MEDS ORDERED: AZITHROMYCIN 40 MG/ML 15 ML/BOTTLE PEG SCH (09:00)
[2018-05-30] MEDS: POLYETHYLENE GLYCOL POWDER 17 GM PACK PEG SCH (11:00)
[2018-05-30] MEDS: CARBIDOPA/LEVODOPA 25-250 MG TABLET PO SCH (11:00)
[2018-05-30] MEDS: ENTACAPONE 200 MG TABLET PO SCH (11:00)
[2018-05-30] MEDS: rOPINIRole 1 MG TABLET PO SCH (11:00)
[2018-05-30] MEDS: OMEGA 3 ACID ETHYL ESTERS 1 GM CAPSULE PO SCH (11:00)
[2018-05-30] MEDS ORDERED: METOCLOPRAMIDE 10 MG/10 ML UDCUP PEG SCH (11:30)
[2018-05-30 12:31] VITALS: BP 106/51
== END 2018-05-30 13:00 | DRG 380 ==
LOC: EDUNIT# → N.ED 15:42 → SUATTDRO 18:22 → N.EDINP 18:22 → N.5E 19:31
PROVIDERS: ADMIT Internal Medicine; ATTEND Internal Medicine Geriatric Medicine
PROC: EGDWPEG (ICD-10-PCS; 2018-05-22 07:35)

== ENCOUNTER 2020-05-15 10:44 | Observation (INO) ==
[2020-05-15] MEDS ORDERED: SODIUM CHLORIDE 0.9% 1,000 ML IV STA (11:00)
[2020-05-15] MEDS ORDERED: ONDANSETRON 4 MG/2 ML VIAL IV STA (11:00)
[2020-05-15] MEDS ORDERED: ONDANSETRON 4 MG/2 ML VIAL ONE (11:02)
[2020-05-15 11:26] LABS: Basophils % 0.4 % (0.0-0.8); Eosinophils # 0.1 10*3/uL (0.0-0.87); Eosinophils % 1.6 % (0.00-10.9); Hematocrit 41.6 VOL% (35.7-47.0); Hemoglobin 13.5 GM/DL (12.0-16.0); Immature Granulocytes % 0.9 %; Immature Granulocytes Absolute 0.04 #; Lymphocytes # 0.7 10*3/uL (1.4-4.0); Lymphocytes % 16.5 % (21.3-54.2); Mean Corpuscular HGB Conc 32.5 GM/DL (32-36); Mean Corpuscular Volume 91.2 FL (87-102); Mean Platelet Volume 10.5 FL (9.6-12.0); Monocytes % 12.7 % (1.7-12.7); Neutrophils % 67.9 % (38.7-73.9); Platelet Count 187 T/CUMM (130-400); Red Blood Count 4.56 MC/CUMM (3.8-5.5); Red Cell Distribution Width 15.5 % (9.3-17.3); White Blood Count 4.5 T/CUMM (4-12)
[2020-05-15 11:41] LABS: Bilirubin,Urine Negative (Negative); Blood, Urine Large mg/dL (Negative); Glucose,Urine (UA) Negative (Negative); Ketones,Urine 25 mg/dL (Negative); Nitrite,Urine Negative (Negative); Protein,Urine 30 MG/DL; RBC,Urine 15-20 /HPF (0-4); Urine Appearance Slightly Hazy (Clear); Urine Color Orange (Yellow); Urine Urobilinogen 0.2 EU/DL (0.2-1.0); WBC,Urine 20-30 /HPF (0-6)
[2020-05-15 11:42] LABS: Mucus,Urine Slight /LPF (Occasional); Squamous Epithelial Cell,Urine Occasional /HPF (0-10)
[2020-05-15 11:57] LABS: Albumin 3.2 G/DL (3.4-5.0); Bilirubin,Total 0.4 MG/DL (0.2-1.0); Calcium 8.8 MG/DL (8.5-10.1); Osmolality,Calculated 276.1 MOS/KG (273-304); Total Protein 7.3 G/DL (6.4-8.3)
[2020-05-15] MEDS ORDERED: cefTRIAXone 1,000 MG in SODIUM CHLORIDE 0.9% 100 ML IV STA (13:01)
[2020-05-15] MEDS ORDERED: cefTRIAXone 1,000 MG in SYRINGE 1 EACH IV STA (13:04)
[2020-05-15] MEDS ORDERED: ACETAMINOPHEN 325 MG TABLET PO PRN (13:55)
[2020-05-15] MEDS ORDERED: DEXTROSE 50% 25 GM/50 ML VIAL IV PRN (13:55)
[2020-05-15] MEDS ORDERED: GLUCAGON 1 MG VIAL IM PRN (13:55)
[2020-05-15] MEDS ORDERED: ONDANSETRON 4 MG/2 ML VIAL IV PRN (13:55)
[2020-05-15 14:59] LABS: Risk Ratio 4.59; Thyroid Stimulating Hormone 1.68 uIU/ml (0.358-3.74); VLDL CHOLESTEROL 46.8 MG/DL
[2020-05-15] MEDS: ENOXAPARIN 40 MG/0.4 ML SYRINGE SUBCUT SCH (15:15)
[2020-05-15] MEDS: SODIUM CHLORIDE 0.9% 1,000 ML IV SCH (15:17)
[2020-05-15] MEDS: INSULIN LISPRO 100 UNIT/ML SUBCUT SCH ×2 (17:17→22:38)
[2020-05-16] MEDS: SODIUM CHLORIDE 0.9% 1,000 ML IV SCH (05:21)
[2020-05-16 05:41] LABS: Basophils % 0.9 % (0.0-0.8); Eosinophils # 0.2 10*3/uL (0.0-0.87); Eosinophils % 6.8 % (0.00-10.9); Hematocrit 36.7 VOL% (35.7-47.0); Hemoglobin 12.2 GM/DL (12.0-16.0); Immature Granulocytes % 0.6 %; Immature Granulocytes Absolute 0.02 #; Lymphocytes # 1.5 10*3/uL (1.4-4.0); Lymphocytes % 43.2 % (21.3-54.2); Mean Corpuscular HGB Conc 33.2 GM/DL (32-36); Mean Corpuscular Volume 88.9 FL (87-102); Mean Platelet Volume 9.2 FL (9.6-12.0); Monocytes % 14.2 % (1.7-12.7); Neutrophils % 34.3 % (38.7-73.9); Platelet Count 192 T/CUMM (130-400); Red Blood Count 4.13 MC/CUMM (3.8-5.5); Red Cell Distribution Width 15.5 % (9.3-17.3); White Blood Count 3.4 T/CUMM (4-12)
[2020-05-16 06:10] LABS: Eosinophils 3 % (0-10); Lymphocytes 40 % (20-55); Segmented Neutrophils 40 % (50-85); Total Cells Counted 100
[2020-05-16 06:11] LABS: Hypochromasia 2+; Platelet Estimate Normal
[2020-05-16 06:15] LABS: Calcium 8.4 MG/DL (8.5-10.1); Osmolality,Calculated 277.5 MOS/KG (273-304)
[2020-05-16] MEDS: INSULIN LISPRO 100 UNIT/ML SUBCUT SCH ×2 (07:43→11:38)
[2020-05-16] MEDS ORDERED: PANTOPRAZOLE 40 MG TABLET PO SCH (09:00)
[2020-05-16 11:52] VITALS: BP 129/61
[2020-05-16] MEDS ORDERED: cefTRIAXone 1,000 MG in SYRINGE 1 EACH IV SCH (14:00)
[2020-05-16] MEDS: ENOXAPARIN 40 MG/0.4 ML SYRINGE SUBCUT SCH (15:09)
== END 2020-05-16 15:33 ==
LOC: EDUNIT# → EDBD → N.ED 10:44 → N.EDINP 10:44 → N.5E 18:03
PROVIDERS: ADMIT Internal Medicine; ATTEND Internal Medicine

== ENCOUNTER 2020-08-12 21:27 | Inpatient (IN) ==
[2020-08-12 21:52] LABS: Basophils # 0.1 10*3/uL (0.0-0.2); Basophils % 0.7 % (0.0-0.8); Eosinophils # 0.5 10*3/uL (0.0-0.87); Eosinophils % 4.9 % (0.00-10.9); Hematocrit 40.8 VOL% (35.7-47.0); Hemoglobin 13.4 GM/DL (12.0-16.0); Immature Granulocytes % 0.8 %; Immature Granulocytes Absolute 0.07 #; Lymphocytes # 2.8 10*3/uL (1.4-4.0); Lymphocytes % 30.2 % (21.3-54.2); Mean Corpuscular HGB Conc 32.8 GM/DL (32-36); Mean Corpuscular Volume 88.9 FL (87-102); Mean Platelet Volume 9.5 FL (9.6-12.0); Monocytes % 6.5 % (1.7-12.7); Neutrophils % 56.9 % (38.7-73.9); Platelet Count 243 T/CUMM (130-400); Red Blood Count 4.59 MC/CUMM (3.8-5.5); Red Cell Distribution Width 14.4 % (9.3-17.3); White Blood Count 9.2 T/CUMM (4-12)
[2020-08-12 22:01] LABS: PT Patient Result 10.3 SECS (9.8-11.9); Partial Thromboplastin Time 28.2 SECS (23.9-33.8)
[2020-08-12 22:07] LABS: Bilirubin,Urine Negative (Negative); Blood, Urine Small mg/dL (Negative); Glucose,Urine (UA) Negative (Negative); Ketones,Urine 5 mg/dL (Negative); Mucus,Urine Occasional /LPF (Occasional); Nitrite,Urine Negative (Negative); Protein,Urine 30 MG/DL; RBC,Urine 17 /HPF (0-4); Urine Appearance CLOUDY (Clear); Urine Color Yellow (Yellow); Urine Specific Gravity 1.011 (1.001-1.035); Urine Urobilinogen < 2.0 EU/DL (0.2-1.0); WBC,Urine 1260 /HPF (0-6)
[2020-08-12 22:08] LABS: Alanine Aminotransferase 28 U/L (13-56); Albumin 3.3 G/DL (3.4-5.0); Alkaline Phosphatase 84 U/L (45-117); Aspartate Amino Transferase 28 U/L (0-37); Bilirubin,Total < 0.39 MG/DL (0.2-1.0); Blood Urea Nitrogen 15 MG/DL (7-18); Carbon Dioxide 26 MMOL/L (21-32); Estimated Glom Filtration Rate 96 ML/MIN; Glucose 101 MG/DL (74-106); Osmolality,Calculated 275.7 MOS/KG (273-304); Potassium 4.1 MMOL/L (3.5-5.1); Sodium 138 MMOL/L (136-145); Total Protein 7.4 G/DL (6.4-8.2); Troponin I < 0.015 NG/ML (0.00-0.045)
[2020-08-12] MEDS ORDERED: SODIUM CHLORIDE 0.9% 1,000 ML IV STA (22:29)
[2020-08-13] MEDS ORDERED: LEVOFLOXACIN INJ 750 MG in PREMIX 1 EACH IV STA (00:22)
[2020-08-13] MEDS ORDERED: DEXTROSE 50% 25 GM/50 ML VIAL IV PRN (00:30)
[2020-08-13] MEDS ORDERED: GLUCAGON 1 MG VIAL IM PRN (00:30)
[2020-08-13] MEDS: ENOXAPARIN 40 MG/0.4 ML SYRINGE SUBCUT SCH (02:34)
[2020-08-13] MEDS: SODIUM CHLORIDE 0.9% 1,000 ML IV SCH ×2 (02:34→17:42)
[2020-08-13 07:03] LABS: Basophils # 0.1 10*3/uL (0.0-0.2); Basophils % 0.7 % (0.0-0.8); Eosinophils # 0.4 10*3/uL (0.0-0.87); Eosinophils % 4.9 % (0.00-10.9); Hematocrit 43.3 VOL% (35.7-47.0); Hemoglobin 14.2 GM/DL (12.0-16.0); Immature Granulocytes % 0.9 %; Immature Granulocytes Absolute 0.07 #; Lymphocytes % 27.2 % (21.3-54.2); Mean Corpuscular HGB Conc 32.8 GM/DL (32-36); Mean Platelet Volume 9.4 FL (9.6-12.0); Monocytes % 7.2 % (1.7-12.7); Neutrophils % 59.1 % (38.7-73.9); Platelet Count 211 T/CUMM (130-400); Red Blood Count 4.81 MC/CUMM (3.8-5.5); Red Cell Distribution Width 14.6 % (9.3-17.3); White Blood Count 7.5 T/CUMM (4-12)
[2020-08-13 07:32] LABS: Albumin 3.3 G/DL (3.4-5.0); Bilirubin,Total 1.1 MG/DL (0.2-1.0); Calcium 9.1 MG/DL (8.5-10.1); Osmolality,Calculated 279.4 MOS/KG (273-304); Potassium 4.4 MMOL/L (3.5-5.1); Total Protein 7.5 G/DL (6.4-8.2)
[2020-08-13] MEDS: INSULIN REGULAR 100 UNIT/ML SUBCUT SCH ×4 (09:59→22:44)
[2020-08-13] MEDS ORDERED: SODIUM CHLORIDE 0.65% NASAL SPRAY 45 ML BOTTLE BOTH NARES PRN (11:28)
[2020-08-13] MEDS ORDERED: ONDANSETRON 4 MG TABLET PEG PRN (11:28)
[2020-08-13] MEDS ORDERED: CARBOXYMETHYLCELLULOSE 1% OPH SOLN BOTH EYES PRN (11:45)
[2020-08-13] MEDS: ENTACAPONE 200 MG TABLET PEG SCH (13:20)
[2020-08-13] MEDS: CARBIDOPA/LEVODOPA 25-250 MG TABLET PEG SCH ×2 (13:20→21:30)
[2020-08-13] MEDS: rOPINIRole 1 MG TABLET PEG SCH ×2 (17:42→21:28)
[2020-08-13] MEDS: OMEPRAZOLE ODT 20 MG TABLET PEG SCH (21:29)
[2020-08-13] MEDS: metFORMIN 500 MG TABLET PEG SCH (21:29)
[2020-08-13] MEDS: LACTULOSE 20 GM/30 ML UDCUP NG SCH (21:30)
[2020-08-13] MEDS: DONEPEZIL 5 MG TABLET PEG SCH (21:30)
[2020-08-13] MEDS: MIRTAZAPINE 15 MG TABLET PEG SCH (21:30)
[2020-08-14] MEDS: ENOXAPARIN 40 MG/0.4 ML SYRINGE SUBCUT SCH (01:50)
[2020-08-14] MEDS: LEVOFLOXACIN INJ 500 MG in PREMIX 1 EACH IV SCH (01:51)
[2020-08-14] MEDS: SODIUM CHLORIDE 0.9% 1,000 ML IV SCH ×2 (05:55→17:18)
[2020-08-14 06:14] LABS: Albumin 2.7 G/DL (3.4-5.0); Bilirubin,Total 0.4 MG/DL (0.2-1.0); Calcium 8.4 MG/DL (8.5-10.1); Osmolality,Calculated 276.7 MOS/KG (273-304); Total Protein 6.2 G/DL (6.4-8.2)
[2020-08-14 07:39] LABS: Basophils % 0.4 % (0.0-0.8); Eosinophils # 0.3 10*3/uL (0.0-0.87); Eosinophils % 3.4 % (0.00-10.9); Hemoglobin 11.8 GM/DL (12.0-16.0); Immature Granulocytes % 0.6 %; Immature Granulocytes Absolute 0.05 #; Lymphocytes # 2.1 10*3/uL (1.4-4.0); Lymphocytes % 26.4 % (21.3-54.2); Mean Corpuscular HGB Conc 32.8 GM/DL (32-36); Mean Platelet Volume 9.5 FL (9.6-12.0); Monocytes % 7.7 % (1.7-12.7); Neutrophils % 61.5 % (38.7-73.9); Platelet Count 219 T/CUMM (130-400); Red Cell Distribution Width 14.6 % (9.3-17.3); White Blood Count 7.8 T/CUMM (4-12)
[2020-08-14] MEDS: CARBIDOPA/LEVODOPA 25-250 MG TABLET PEG SCH ×2 (08:16→22:14)
[2020-08-14] MEDS: rOPINIRole 1 MG TABLET PEG SCH ×3 (08:16→22:14)
[2020-08-14] MEDS: POLYETHYLENE GLYCOL POWDER 17 GM PACK PEG SCH (08:16)
[2020-08-14] MEDS: CETIRIZINE 10 MG TABLET PEG SCH (08:17)
[2020-08-14] MEDS: metFORMIN 500 MG TABLET PEG SCH ×2 (08:17→22:16)
[2020-08-14] MEDS: OMEPRAZOLE ODT 20 MG TABLET PEG SCH ×2 (08:17→22:15)
[2020-08-14] MEDS: ENTACAPONE 200 MG TABLET PEG SCH (08:17)
[2020-08-14] MEDS ORDERED: NON-FORMULARY MEDICATION (Omega-3 Fatty Acids-Vitamin E 1,000 mg Capsule) PEG SCH (09:00)
[2020-08-14] MEDS: INSULIN REGULAR 100 UNIT/ML SUBCUT SCH ×3 (09:14→17:02)
[2020-08-14] MEDS ORDERED: PROMETHAZINE 25 MG/1 ML VIAL IM PRN (09:36)
[2020-08-14] MEDS: ONDANSETRON 4 MG/2 ML VIAL IV PRN ×2 (09:40→20:24)
[2020-08-14] MEDS ORDERED: VANCOMYCIN INJ 1,000 MG in SODIUM CHLORIDE 0.9% 250 ML IV ONE (16:30)
[2020-08-14] MEDS: DONEPEZIL 5 MG TABLET PEG SCH (22:16)
[2020-08-14] MEDS: MIRTAZAPINE 15 MG TABLET PEG SCH (22:16)
[2020-08-15] MEDS: INSULIN REGULAR 100 UNIT/ML SUBCUT SCH ×4 (00:44→16:23)
[2020-08-15] MEDS: ENOXAPARIN 40 MG/0.4 ML SYRINGE SUBCUT SCH (01:00)
[2020-08-15] MEDS: LEVOFLOXACIN INJ 500 MG in PREMIX 1 EACH IV SCH (02:22)
[2020-08-15 05:35] LABS: Basophils % 0.4 % (0.0-0.8); Eosinophils # 0.3 10*3/uL (0.0-0.87); Eosinophils % 3.9 % (0.00-10.9); Hematocrit 34.3 VOL% (35.7-47.0); Hemoglobin 11.5 GM/DL (12.0-16.0); Immature Granulocytes % 0.4 %; Immature Granulocytes Absolute 0.03 #; Lymphocytes # 1.3 10*3/uL (1.4-4.0); Lymphocytes % 17.8 % (21.3-54.2); Mean Corpuscular HGB Conc 33.5 GM/DL (32-36); Mean Corpuscular Volume 88.4 FL (87-102); Mean Platelet Volume 9.2 FL (9.6-12.0); Monocytes % 6.6 % (1.7-12.7); Neutrophils % 70.9 % (38.7-73.9); Platelet Count 197 T/CUMM (130-400); Red Blood Count 3.88 MC/CUMM (3.8-5.5); Red Cell Distribution Width 14.7 % (9.3-17.3); White Blood Count 7.2 T/CUMM (4-12)
[2020-08-15 06:02] LABS: Alanine Aminotransferase < 9 U/L (13-56); Albumin 2.8 G/DL (3.4-5.0); Alkaline Phosphatase 75 U/L (45-117); Aspartate Amino Transferase 19 U/L (0-37); Blood Urea Nitrogen 6 MG/DL (7-18); Calcium 8.3 MG/DL (8.5-10.1); Carbon Dioxide 24 MMOL/L (21-32); Estimated Glom Filtration Rate 100 ML/MIN; Glucose 92 MG/DL (74-106); Osmolality,Calculated 274.5 MOS/KG (273-304); Potassium 3.7 MMOL/L (3.5-5.1); Sodium 139 MMOL/L (136-145); Total Protein 6.2 G/DL (6.4-8.2)
[2020-08-15] MEDS: OMEPRAZOLE ODT 20 MG TABLET PEG SCH ×2 (09:50→21:43)
[2020-08-15] MEDS: metFORMIN 500 MG TABLET PEG SCH (09:50)
[2020-08-15] MEDS: CARBIDOPA/LEVODOPA 25-250 MG TABLET PEG SCH ×2 (09:50→21:42)
[2020-08-15] MEDS: CETIRIZINE 10 MG TABLET PEG SCH (09:50)
[2020-08-15] MEDS: ENTACAPONE 200 MG TABLET PEG SCH (09:50)
[2020-08-15] MEDS: POLYETHYLENE GLYCOL POWDER 17 GM PACK PEG SCH (09:51)
[2020-08-15] MEDS: rOPINIRole 1 MG TABLET PEG SCH ×3 (09:51→21:44)
[2020-08-15] MEDS: SODIUM CHLORIDE 0.9% 1,000 ML IV SCH (10:54)
[2020-08-15] MEDS: ONDANSETRON 4 MG/2 ML VIAL IV PRN (21:41)
[2020-08-15] MEDS: LACTULOSE 20 GM/30 ML UDCUP NG SCH (21:42)
[2020-08-15] MEDS: MIRTAZAPINE 15 MG TABLET PEG SCH (21:43)
[2020-08-15] MEDS: DONEPEZIL 5 MG TABLET PEG SCH (21:43)
[2020-08-16] MEDS: metFORMIN 500 MG TABLET PEG SCH ×2 (00:01→10:26)
[2020-08-16] MEDS: INSULIN REGULAR 100 UNIT/ML SUBCUT SCH ×3 (00:02→12:42)
[2020-08-16] MEDS: SODIUM CHLORIDE 0.9% 1,000 ML IV SCH (00:02)
[2020-08-16] MEDS: LEVOFLOXACIN INJ 500 MG in PREMIX 1 EACH IV SCH (00:30)
[2020-08-16] MEDS: ENOXAPARIN 40 MG/0.4 ML SYRINGE SUBCUT SCH (00:30)
[2020-08-16 05:05] LABS: Basophils % 0.6 % (0.0-0.8); Eosinophils # 0.3 10*3/uL (0.0-0.87); Eosinophils % 5.4 % (0.00-10.9); Hematocrit 34.5 VOL% (35.7-47.0); Hemoglobin 11.9 GM/DL (12.0-16.0); Immature Granulocytes % 0.4 %; Immature Granulocytes Absolute 0.02 #; Lymphocytes # 1.6 10*3/uL (1.4-4.0); Lymphocytes % 29.6 % (21.3-54.2); Mean Corpuscular HGB Conc 34.5 GM/DL (32-36); Mean Corpuscular Volume 87.1 FL (87-102); Mean Platelet Volume 9.4 FL (9.6-12.0); Monocytes % 9.4 % (1.7-12.7); Neutrophils % 54.6 % (38.7-73.9); Platelet Count 201 T/CUMM (130-400); Red Blood Count 3.96 MC/CUMM (3.8-5.5); Red Cell Distribution Width 14.6 % (9.3-17.3); White Blood Count 5.4 T/CUMM (4-12)
[2020-08-16 05:25] LABS: Calcium 8.3 MG/DL (8.5-10.1); Osmolality,Calculated 275.5 MOS/KG (273-304); Potassium 3.7 MMOL/L (3.5-5.1)
[2020-08-16] MEDS: ENTACAPONE 200 MG TABLET PEG SCH (10:26)
[2020-08-16] MEDS: rOPINIRole 1 MG TABLET PEG SCH (10:27)
[2020-08-16] MEDS: CETIRIZINE 10 MG TABLET PEG SCH (10:27)
[2020-08-16] MEDS: OMEPRAZOLE ODT 20 MG TABLET PEG SCH (10:27)
[2020-08-16] MEDS: CARBIDOPA/LEVODOPA 25-250 MG TABLET PEG SCH (10:27)
[2020-08-16] MEDS: POLYETHYLENE GLYCOL POWDER 17 GM PACK PEG SCH (10:27)
[2020-08-16 12:32] VITALS: BP 118/54
== END 2020-08-16 13:15 | DRG 689 ==
LOC: EDUNIT# → EDBD → N.ED 21:27 → N.EDINP 21:27 → N.4E 08-13 02:46
PROVIDERS: ADMIT Internal Medicine; ATTEND Internal Medicine